=== PATIENT | female | born 2000 | race Caucasian/White ===

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

== ENCOUNTER → 2019-12-28 | Outpatient (CLI) | payer OTHER, SELFPAY ==
[2018-12-20 00:04] VITALS: BMI 21.5
--- NOTE | 2019-12-28 15:43 | CT_ITS ---
CT of the right ankle INDICATION: Ankle instability, bone fragment removal. Ankle pain TECHNIQUE: Multiple thin section axial CT images the right ankle joint were obtained and filmed in bone and soft tissue windows. Furthermore, multiple sagittal and coronal reconstructions were performed. No abnormal soft tissue mass, lymphadenopathy, fluid collection. The patient is status post interval removal of syndesmotic screw of between the distal fibula and tibia with a surgical anchor along the lateral cortex of the fibula. There is irregularity of the distal tibia and fibula at this site. No acute fracture or dislocation. IMPRESSION: Postsurgical changes to the distal tibia and fibula. Electronically Signed: Maurilio Naylor MD at 8:56 EST Tel , Service support , CT/Extremity Lower without Contra
== END | disposition home or self-care (01) ==
DX: M25.371 Other instability, right ankle (principal)
CPT/HCPCS: 73700